=== PATIENT | male | born 1945 | race Caucasian/White ===

== ENCOUNTER → 2016-11-14 | Outpatient (CLI) | payer MEDICARE | END | disposition home or self-care (01) | LOC: PCVCCLINIC 14:27 | PROVIDERS: ATTEND Nuclear Medicine Nuclear Cardiology | DX: I73.9 Peripheral vascular disease, unspecified (principal); I77.89 Other specified disorders of arteries and arterioles; I10 Essential (primary) hypertension; I77.810 Thoracic aortic ectasia; E78.5 Hyperlipidemia, unspecified; G45.9 Transient cerebral ischemic attack, unspecified; F32.9 Major depressive disorder, single episode, unspecified; Z79.82 Long term (current) use of aspirin; Z88.8 Allergy status to other drugs, medicaments and biological substances; Z79.899 Other long term (current) drug therapy | CPT/HCPCS: G0463 ==

== ENCOUNTER → 2016-11-17 | Outpatient (CLI) | payer MEDICARE ==
--- NOTE | 2016-11-17 19:52 | PCVCINTER ---
EXAM: 1. AORTOGRAM AND BILATERAL LOWER EXTREMITY RUNOFF ANGIOGRAM 2. BILATERAL RENAL ANGIOGRAPHY 3. RIGHT SUPERFICIAL FEMORAL ARTERY ATHERECTOMY AND STENT PLACEMENT. 4. DRUG COATED BALLOON ANGIOPLASTY RIGHT SUPERFICIAL FEMORAL ARTERY. 5. RIGHT PERONEAL ARTERY ATHERECTOMY 6. SECONDARY THROMBECTOMY RIGHT PERONEAL ARTERY. INDICATION: Peripheral arterial disease. Coronary artery disease. Nonhealing ulcer right lower extremity. Hypertension. Renal atherosclerosis. PROCEDURE: Procedure and risks of angiography intervention is appropriate including limb loss stroke and were discussed with the patient's family and consent obtained. The patient's left groin was prepped abnormal sterile fashion. IV conscious sedation was used to procedure with appropriate monitoring for 90 minutes. Ultrasound was used to interrogate the left groin and showed the left common femoral artery to be patent. A permanent spot film was obtained. Under ultrasound guidance access into the left common femoral artery was obtained and a 5 [place] sheath was placed. Through this a 5 [place] flush catheter was placed into the abdominal aorta at the level of the renal arteries and AP aortogram was performed. Catheter was positioned at the aortic bifurcation and both oblique views of the pelvis were obtained. Catheter was positioned into the left external iliac artery and left leg runoff angiography was performed. Catheter was exchanged for a visceral catheter was placed into the right renal arteries and right renal angiograms obtained. Catheter was placed into the the left renal arteries and left renal angiograms were obtained. Catheter was advanced to the level of the right external iliac artery and right leg runoff angiography was obtained. Patient was given 4500 units of heparin. A 6 [place] crossover sheath was placed via the left groin to the level of the right common femoral artery. Atherectomy of the right superficial femoral artery was performed with 0.9 mm [employer] laser atherectomy catheter in the standard fashion. Atherectomy of the right peroneal artery was performed with 0.9 mm [employer] laser atherectomy catheter in the standard fashion. Following atherectomy small areas of thrombus were observed and because of this secondary thrombectomy throughout the right peroneal artery was carried out with mechanical suction thrombectomy catheter in the standard fashion. Minimal debris was removed. Angioplasty of the areas of occlusion and stenosis in the mid and distal right peroneal artery was carried out with a 2.0 mm sleek RAIL FILLER catheter. Stent placement across the areas of high-grade stenosis in the right superficial femoral artery was carried out with a 6 x 80 Smart control stent with subsequent dilatation to 5.0 mm. Following this drug coated balloon angioplasty of the right superficial femoral artery was carried out with a 5 x 120 [employer] Admiral RAIL FILLER catheter. Follow-up angiogram was performed. Catheters and wires removed. Sheath was removed and hemostasis obtained using the Exoseal device. No immediate complications. FINDINGS: Aortogram: There are 2 right and one left renal artery. Moderately extensive atheromatous plaque in the infrarenal abdominal aorta does not cause flow-limiting stenosis. Pelvis: Moderate plaque in the right and left common iliac arteries does not cause flow-limiting stenosis. Both internal iliac arteries show adequate patency. The right and left external iliac arteries are patent. Eccentric plaque right common femoral artery results in 60% stenosis. Mild plaque left common femoral artery without stenosis. The profunda femoral arteries are patent bilaterally. Right renal artery: Moderate plaque proximal vessel causes only mild stenosis. There is an inferior accessory renal artery showing good patency. Left renal artery: Eccentric plaque proximal vessel results in 60% stenosis. Right leg: Moderate plaque throughout the superficial femoral artery with a large eccentric plaque in the distal vessel resulting in 80% stenosis. Moderate plaque popliteal artery without flow-limiting stenosis. Previous site of stenosis mid popliteal artery maintaining satisfactory patency. Occlusion throughout the anterior tibial artery. Short segment occlusion mid/distal peroneal artery consistent with embolus from prior intervention when compared with October 2016 angiogram from . The peroneal artery is the dominant runoff vessel and refills portions of the plantar arteries and dorsalis pedis. High-grade stenosis throughout the posterior tibial artery with occlusion of the mid/distal vessel. Left leg: Moderate plaque throughout the superficial femoral artery with eccentric plaque in the mid vessel resulting in 50% stenosis. Moderate plaque mid popliteal artery results in 40% stenosis. 50% stenosis of the tibioperoneal trunk. 99% focal stenosis mid peroneal artery. Otherwise peroneal artery is the dominant runoff vessel and is continuous to the ankle. Occlusion of the mid/distal anterior tibial artery. Occlusion throughout the mid and distal posterior tibial artery. Right superficial femoral artery: Following procedure as above vessel shows good patency. Right peroneal artery: Following procedure as above the area of embolic segmental occlusion in the mid vessel shows good patency. There remains significant stenosis and slow flow in the distal most peroneal artery. There is occlusion throughout the anterior and posterior tibial arteries. IMPRESSION: 80% stenosis distal right superficial femoral artery was treated as above with good patency restored. Short segment occlusion mid/distal right peroneal artery as reviewed above was treated as above with patency restored. Stenosis throughout the distal most right peroneal artery persists despite angioplasty. Severe bilateral infrapopliteal arterial occlusive disease as reviewed above. LOC:[id number]
== END | disposition home or self-care (01) ==
LOC: PCVCINTER 16:05
PROVIDERS: ATTEND Nuclear Medicine Nuclear Cardiology
DX: I70.213 Atherosclerosis of native arteries of extremities with intermittent claudication, bilateral legs (principal); I25.10 Atherosclerotic heart disease of native coronary artery without angina pectoris; I70.1 Atherosclerosis of renal artery
CPT/HCPCS: 36252; 37186; 37227; 37229; 75716; 76937; 99152; 99153; C1725; C1751; C1757; C1769; C1876; C1885; C1887; C1894; C2623; Q9966